=== PATIENT | male | born 1985 ===

== ENCOUNTER 2023-10-30 16:04 | Inpatient (IN) | payer MEDICAID, OTHER ==
[~2023-10-30] VITALS: Ht 182.9 cm; Wt 129.8 kg
[2023-10-30 18:52] LABS: Urine Bacteria None Seen /hpf (None Seen)
[2023-10-30 19:18] LABS: Urine Blood Negative /uL (Negative); Urine Clarity Clear (Clear); Urine Color Yellow (Yellow); Urine Mucus FEW (None Seen); Urine Protein, UAD TRACE (Negative); Urine Urobilinogen 2 mg/dL (Negative); Urine WBC 1 /hpf (0 - 3); Urine pH 5.5 (5.0-9.0)
[2023-10-30 19:41] LABS: Basophils # (auto) 0 10 ^3/uL (0-0.2); Basophils % (auto) 0.2 % (0.0-2.0); Eosinophils # (auto) 0.1 10 ^3/uL (0-0.8); Eosinophils % (auto) 1.5 % (0.0-7.0); Hematocrit 46.9 % (41.0-53.0); Hemoglobin 15.6 g/dL (13.5-17.5); Lymphocytes # (auto) 2.4 10 ^3/uL (0.4-5.4); Lymphocytes % (auto) 24.5 % (10.0-50.0); Mean Corpuscular Hemoglobin 31.6 pg (28.0-32.0); Mean Corpuscular Hgb Conc. 33.2 g/dL (32.0-36.0); Mean Corpuscular Volume 95.2 fL (80.0-100.0); Monocytes # (auto) 0.8 10 ^3/uL (0-1.3); Monocytes % (auto) 8.6 % (0.0-12.0); Neutrophils # (auto) 6.4 10 ^3/uL (1.6-8.6); Neutrophils % (auto) 65.2 % (37.0-80.0); Nucleated Red Blood Cells % 0.2 %; Red Blood Cells 4.93 10^6/uL (4.5-5.90); Red Cell Distribution Width 13.1 % (11.8-14.3); White Blood Cell 9.8 10^3/uL (4.4-10.8)
[2023-10-30 19:56] LABS: Alanine Aminotransferase 23 U/L (7-40); Albumin 4.7 g/dL (3.2-4.8); Alkaline Phosphatase 99 U/L (46-116); Anion Gap 8 (5-15); Aspartate Aminotransferase 16 U/L (13-40); BUN/Creatinine Ratio 9.4 (10.0-20.0); Blood Urea Nitrogen 9 mg/dL (9-23); Calcium 9.8 mg/dL (8.7-10.4); Carbon Dioxide 28 mmol/L (20-30); Chloride 102 mmol/L (98-107); Glucose 99 mg/dL (74-106); Lipase 42 U/L (12-53); Potassium 3.8 mmol/L (3.5-5.1); Sodium 138 mmol/L (136-145); Total Protein 8.4 g/dL (5.7-8.2)
[2023-10-30] MEDS ORDERED: OMEP-448 PO (21:10)
[2023-10-30] MEDS: IOHEXOL 350 MG/ML 100ML IJ ONE (22:28)
[2023-10-30 23:20] VITALS: PULSE 92; RESP 24; O2SAT 94
[2023-10-30] MEDS: SODIUM CHLORIDE 0.9% 1,000 ML IV ONE (23:40)
[2023-10-30] MEDS: PIPERACILLIN-TAZOB 3.375GM 100 ML IV ONE (23:50)
[2023-10-31] MEDS ORDERED: PIPERACILLIN-TAZOB 3.375GM 100 ML IV SCH
[2023-10-31 00:23] LABS: Basophils # (auto) 0 10 ^3/uL (0-0.2); Basophils % (auto) 0.2 % (0.0-2.0); Eosinophils # (auto) 0.1 10 ^3/uL (0-0.8); Eosinophils % (auto) 1.2 % (0.0-7.0); Hematocrit 42.3 % (41.0-53.0); Hemoglobin 14.1 g/dL (13.5-17.5); Lymphocytes # (auto) 1.7 10 ^3/uL (0.4-5.4); Lymphocytes % (auto) 18.1 % (10.0-50.0); Mean Corpuscular Hemoglobin 31.2 pg (28.0-32.0); Mean Corpuscular Hgb Conc. 33.3 g/dL (32.0-36.0); Mean Corpuscular Volume 93.5 fL (80.0-100.0); Monocytes # (auto) 0.9 10 ^3/uL (0-1.3); Monocytes % (auto) 9.7 % (0.0-12.0); Neutrophils # (auto) 6.5 10 ^3/uL (1.6-8.6); Neutrophils % (auto) 70.8 % (37.0-80.0); Red Blood Cells 4.53 10^6/uL (4.5-5.90); Red Cell Distribution Width 13.3 % (11.8-14.3); White Blood Cell 9.3 10^3/uL (4.4-10.8)
[2023-10-31 00:30] VITALS: PULSE 81; RESP 14; O2SAT 94
[2023-10-31 00:32] LABS: Alanine Aminotransferase 21 U/L (7-40); Albumin 4.1 g/dL (3.2-4.8); Alkaline Phosphatase 84 U/L (46-116); Anion Gap 6 (5-15); Aspartate Aminotransferase 13 U/L (13-40); BUN/Creatinine Ratio 9.5 (10.0-20.0); Blood Urea Nitrogen 9 mg/dL (9-23); Carbon Dioxide 27 mmol/L (20-30); Chloride 103 mmol/L (98-107); Glucose 110 mg/dL (74-106); Potassium 3.4 mmol/L (3.5-5.1); Sodium 136 mmol/L (136-145)
[2023-10-31 00:33] LABS: Total Protein 7.3 g/dL (5.7-8.2)
[2023-10-31 00:42] LABS: INR 1.08 (0.9-1.15); Partial Thromboplastin Time 29.1 SEC (24.5-34.5); Prothrombin Time 11.4 sec (9.3-11.8)
[2023-10-31] MEDS: SODIUM CHLORIDE 0.9% 1,000 ML IV SCH ×2 (00:42→12:25)
[2023-10-31] MEDS: ONDANSETRON HCL 4 MG/2 ML VIAL IV PRN (04:18)
[2023-10-31] MEDS: MORPHINE SULFATE INJ 2 MG/ml SYRG IV PRN (04:19)
[2023-10-31 05:10] LABS: Basophils # (auto) 0 10 ^3/uL (0-0.2); Basophils % (auto) 0.3 % (0.0-2.0); Eosinophils # (auto) 0.2 10 ^3/uL (0-0.8); Eosinophils % (auto) 1.9 % (0.0-7.0); Hematocrit 41.8 % (41.0-53.0); Hemoglobin 14.1 g/dL (13.5-17.5); Lymphocytes % (auto) 21.8 % (10.0-50.0); Mean Corpuscular Hemoglobin 31.3 pg (28.0-32.0); Mean Corpuscular Hgb Conc. 33.7 g/dL (32.0-36.0); Mean Corpuscular Volume 92.9 fL (80.0-100.0); Monocytes # (auto) 0.9 10 ^3/uL (0-1.3); Monocytes % (auto) 9.8 % (0.0-12.0); Neutrophils % (auto) 66.2 % (37.0-80.0); Nucleated Red Blood Cells % 0.1 %
[2023-10-31 05:31] LABS: Alanine Aminotransferase 17 U/L (7-40); Alkaline Phosphatase 84 U/L (46-116); Anion Gap 7 (5-15); Aspartate Aminotransferase 13 U/L (13-40); BUN/Creatinine Ratio 8.3 (10.0-20.0); Blood Urea Nitrogen 8 mg/dL (9-23); Calcium 9.2 mg/dL (8.5-10.1); Carbon Dioxide 27 mmol/L (20-30); Chloride 104 mmol/L (98-107); Glucose 102 mg/dL (74-106); Potassium 3.6 mmol/L (3.5-5.1); Sodium 138 mmol/L (136-145)
[2023-10-31 05:36] LABS: Albumin 4.2 g/dL (3.2-4.8)
[2023-10-31] MEDS: PIPERACILLIN-TAZOB 3.375GM 100 ML IV SCH (05:58)
[2023-10-31 08:11] LABS: INR 1.05 (0.9-1.15); Prothrombin Time 11.1 sec (9.3-11.8)
[2023-10-31] MEDS: LIDOCAINE W/ EPINEPHRINE 1% 20ML VIAL ONE (08:14)
[2023-10-31] MEDS: SODIUM CHLORIDE 0.9% 1,000 ML IV ONE (08:15)
[2023-10-31] MEDS ORDERED: fentaNYL CITRATE 100 MCG/2 ML VL ONE (08:18)
[2023-10-31] MEDS ORDERED: PROPOFOL 10 MG/ML 20 ML IV ONE (08:18)
[2023-10-31] MEDS ORDERED: ONDANSETRON HCL 4 MG/2 ML VIAL ONE (08:18)
[2023-10-31] MEDS ORDERED: DexAMETHasone SOD PHOS 10MG/1ML VIAL INJ ONE (08:18)
[2023-10-31] MEDS ORDERED: KETOROLAC TROMETH 30 MG/ML 1ML VIAL ONE (08:18)
[2023-10-31] MEDS ORDERED: MIDAZOLAM HCL 2MG/2ML 2ml VIAL (1mg/ml) ONE (08:18)
[2023-10-31] MEDS ORDERED: HYDROmorphone HCL 2 MG/ML VL/or syr ONE (08:18)
[2023-10-31] MEDS ORDERED: ROCURONIUM 10MG/ML 10ML VIAL IV ONE (08:18)
[2023-10-31] MEDS ORDERED: GLYCOPYRROLATE 0.2 MG/ML 1ML VIAL ONE (08:18)
[2023-10-31] MEDS ORDERED: ePHEDrine SULFATE 50 MG/ML AMP ONE (08:18)
[2023-10-31] MEDS ORDERED: SUGAMMADEX 200mg/2ml Vial (100MG/ML) IV ONE (09:55)
[2023-10-31] MEDS: LIDOCAINE HCL 1%(LOCAL ANESTH.) INJ 50ML MDV IJ ONE (09:58)
[2023-10-31 10:12] VITALS: PULSE 118; RESP 12; O2SAT 95
[2023-10-31] MEDS ORDERED: HYDROmorphone HCL 2 MG/ML VL/or syr IV PRN (10:30)
[2023-10-31] MEDS: ONDANSETRON HCL 4 MG/2 ML VIAL IV ONE (10:30)
[2023-10-31 10:59] VITALS: RESP 69; O2SAT 98
[2023-10-31 12:44] VITALS: BP 116/57; PULSE 105; RESP 18; TEMP 98.6; O2SAT 90
[2023-10-31] MEDS ORDERED: KETAMINE 50mg/ML 10ml Vial (500mg/10ml) IV ONE (14:29)
[2023-10-31 20:00] VITALS: BP 100/50; PULSE 92; RESP 17; RESP 18; TEMP 98.3; O2SAT 94
[2023-10-31] MEDS: ACETAMINOPHEN/CODEINE#3 (300/30mg) TAB PO PRN (20:41)
[2023-10-31 21:00] VITALS: BP_SYST 108; BP_SYST 151; BP_SYST 97; BP_DIAS 47; BP_DIAS 58; BP_DIAS 95; PULSE 65; PULSE 81; PULSE 85; RESP 20; TEMP 98; TEMP 98.3; TEMP 98.4; O2SAT 100; O2SAT 94
[2023-11-01 06:16] LABS: Basophils # (auto) 0 10 ^3/uL (0-0.2); Basophils % (auto) 0.1 % (0.0-2.0); Eosinophils # (auto) 0 10 ^3/uL (0-0.8); Hematocrit 39.5 % (41.0-53.0); Hemoglobin 13.3 g/dL (13.5-17.5); Lymphocytes # (auto) 1.5 10 ^3/uL (0.4-5.4); Mean Corpuscular Hemoglobin 31.5 pg (28.0-32.0); Mean Corpuscular Hgb Conc. 33.7 g/dL (32.0-36.0); Mean Corpuscular Volume 93.4 fL (80.0-100.0); Monocytes # (auto) 0.9 10 ^3/uL (0-1.3); Monocytes % (auto) 7.9 % (0.0-12.0); Neutrophils # (auto) 8.5 10 ^3/uL (1.6-8.6); Red Blood Cells 4.23 10^6/uL (4.5-5.90); Red Cell Distribution Width 12.8 % (11.8-14.3); White Blood Cell 10.9 10^3/uL (4.4-10.8)
[2023-11-01 06:17] LABS: Chloride 105 mmol/L (98-107); Sodium 139 mmol/L (136-145)
[2023-11-01 06:18] LABS: Anion Gap 6 (5-15); Carbon Dioxide 28 mmol/L (20-30)
[2023-11-01 06:19] LABS: Calcium 8.9 mg/dL (8.7-10.4)
[2023-11-01 06:24] LABS: BUN/Creatinine Ratio 6.7 (10.0-20.0); Blood Urea Nitrogen 6 mg/dL (9-23); Glucose 134 mg/dL (74-106)
[2023-11-01 08:00] VITALS: BP 93/51; PULSE 78; RESP 20; TEMP 98.1; O2SAT 98
[2023-11-01 09:00] VITALS: BP 93/51; PULSE 78; RESP 20; TEMP 98.1; O2SAT 98
[2023-11-01 13:00] VITALS: BP 97/56; PULSE 77; RESP 20; TEMP 97.9; O2SAT 99
[2023-11-01 16:44] VITALS: BP 97/47; PULSE 77; RESP 20; TEMP 98.4; O2SAT 95
[2023-11-01 20:00] VITALS: BP 93/51; PULSE 78; PULSE 92; RESP 18; RESP 20; TEMP 98.1; O2SAT 94
[2023-11-01] MEDS: MORPHINE SULFATE 4 MG/ML SYR/VIAL IV PRN (20:35)
[2023-11-01 21:00] VITALS: BP 96/54; PULSE 101; RESP 20; TEMP 98.2; O2SAT 94
[2023-11-01] MEDS: PANTOPRAZOLE 40 MG/10 ML VIAL INJ IV ONE (23:55)
[2023-11-02] MEDS ORDERED: PANTOPRAZOLE 40 MG/10 ML VIAL INJ IV SCH
[2023-11-02 05:00] VITALS: BP 115/72; PULSE 87; RESP 20; TEMP 98.6; O2SAT 96
[2023-11-02 06:03] LABS: Basophils # (auto) 0 10 ^3/uL (0-0.2); Basophils % (auto) 0.2 % (0.0-2.0); Eosinophils # (auto) 0.1 10 ^3/uL (0-0.8); Eosinophils % (auto) 0.6 % (0.0-7.0); Hematocrit 36.4 % (41.0-53.0); Hemoglobin 12.4 g/dL (13.5-17.5); Lymphocytes # (auto) 1.6 10 ^3/uL (0.4-5.4); Lymphocytes % (auto) 19.5 % (10.0-50.0); Mean Corpuscular Hemoglobin 31.5 pg (28.0-32.0); Mean Corpuscular Volume 92.7 fL (80.0-100.0); Monocytes # (auto) 0.7 10 ^3/uL (0-1.3); Monocytes % (auto) 8.7 % (0.0-12.0); Neutrophils # (auto) 5.9 10 ^3/uL (1.6-8.6); Nucleated Red Blood Cells % 0.1 %; Red Blood Cells 3.93 10^6/uL (4.5-5.90); Red Cell Distribution Width 13.1 % (11.8-14.3); White Blood Cell 8.3 10^3/uL (4.4-10.8)
[2023-11-02 06:23] LABS: Anion Gap 6 (5-15); Carbon Dioxide 26 mmol/L (20-30); Chloride 106 mmol/L (98-107); Potassium 3.6 mmol/L (3.5-5.1); Sodium 138 mmol/L (136-145)
[2023-11-02 06:24] LABS: Calcium 8.8 mg/dL (8.5-10.1)
[2023-11-02 06:29] LABS: BUN/Creatinine Ratio 6.7 (10.0-20.0); Blood Urea Nitrogen 7 mg/dL (9-23); Glucose 108 mg/dL (74-106)
[2023-11-02 07:30] VITALS: TEMP 37
[2023-11-02 09:00] VITALS: BP_SYST 119; BP_SYST 153; BP_DIAS 78; BP_DIAS 93; PULSE 81; PULSE 86; RESP 18; RESP 20; TEMP 98; TEMP 98.1; O2SAT 94; O2SAT 95
[2023-11-02] MEDS: PANTOPRAZOLE 40 MG/10 ML VIAL INJ IV SCH (09:48)
[2023-11-02 16:37] VITALS: BP 126/72; PULSE 85; RESP 20; TEMP 98.3; O2SAT 96
[2023-11-02 20:00] VITALS: RESP 18
[2023-11-02 21:00] VITALS: BP 110/64; PULSE 89; RESP 15; TEMP 99.1; O2SAT 94
[2023-11-03 05:00] VITALS: BP 124/71; PULSE 87; RESP 17; TEMP 100.2; O2SAT 93
[2023-11-03 09:00] VITALS: BP 161/93; PULSE 89; RESP 16; TEMP 97.5; O2SAT 96
[2023-11-03] MEDS ORDERED: HYDR-4902 PO (11:25)
[2023-11-03] MEDS ORDERED: METR-344 PO (11:25)
[2023-11-03] MEDS ORDERED: LEVO500T91 PO (11:25)
[2023-11-03 13:00] VITALS: BP 133/64; PULSE 92; RESP 6; TEMP 98; O2SAT 98
[2023-11-03 13:22] VITALS: TEMP 36.4
== END 2023-11-03 14:30 | disposition home or self-care (01) | DRG 233 ==
LOC: ER 16:04 → OVERFLOW 23:57 → WEST WING 10-31 11:04
PROVIDERS: ADMIT Nurse Practitioner; ATTEND Family Medicine
PROC: 0W9G40Z Drainage of Peritoneal Cavity with Drainage Device, Percutaneous Endoscopic Approach (ICD-10-PCS; 2023-10-31)
PROC: 0DTJ4ZZ Resection of Appendix, Percutaneous Endoscopic Approach (ICD-10-PCS; principal; 2023-10-31 08:41)
DX: K35.33 Acute appendicitis with perforation, localized peritonitis, and gangrene, with abscess (principal); K27.5 Chronic or unspecified peptic ulcer, site unspecified, with perforation; E86.0 Dehydration; Z79.899 Other long term (current) drug therapy
CPT/HCPCS: 36415; 74176; 74177; 80048; 80053; 81001; 83690; 85025; 85610; 85730; C9113; G0378; J1100; J1885; J2250; J2405; J2543; J2704